=== PATIENT | female | born 1985 | race Caucasian/White ===

== ENCOUNTER 2016-05-06 17:48 | Emergency (ER) | payer MEDICAID ==
[~2016-05-06] VITALS: Wt 110.5 kg
[2016-05-06] MEDS ORDERED: OFLO5DRO7 LEFT EAR (18:29)
[2016-05-06] MEDS ORDERED: IBUP-1542 PO (18:29)
[2016-05-06] MEDS ORDERED: AMOX1TAB10 PO (18:29)
--- NOTE | 2016-05-06 20:57 | ERD ---
ER Documentation Chief Complaint Date/Time DATE: 05/06/16 TIME: 20:55 Chief Complaint LEFT EAR PAIN X3 DAYS, DISCHARGE REPORTED HPI 30-year-old female comes in with left ear pain and drainage as well for the last 2 days. No fevers, chills, chest cough or shortness of breath. Denies trauma. ROS All systems reviewed and are negative except as per history of present illness. Medications Home Meds Active Scripts Ibuprofen* (Motrin*) 600 Mg Tab, 600 MG PO Q6, #30 TAB Prov:MATHEUS YOUNG PA-C 05/06/16 Ofloxacin Otic (Ofloxacin Otic) 5 Ml Drops, 5 DROP LEFT EAR BID for 10 Days, #1 BOTTLE Prov:MATHEUS YOUNG PA-C 05/06/16 Amoxicillin/Potassium Clav (Amox-Clav 875-125 mg Tablet) 875-125 mg Tab, 1 TAB PO BID for 7 Days, #14 TAB Prov:MATHEUS YOUNG PA-C 05/06/16 Physical Exam Vitals Vital Signs Date Time Temp Pulse Resp B/P Pulse Ox O2 Delivery O2 Flow Rate FiO2 05/06/16 18:07 98.6 101 17 151/78 99 Physical Exam General: Well-developed, well-nourished. The patient appears in no acute distress. HEENT: Head is normocephalic, atraumatic. No scleral icterus. Left ear has a ruptured tympanic membrane at the 9 o'clock position, there is mild drainage, no otorrhea, external ear is unremarkable, mastoids are nontender. Right ear is normal. Neck: Supple. Nontender. Lungs: Clear to auscultation. Normal air movement. Heart: Regular rate and rhythm. S1 and S2 are normal. No murmurs, gallops, or rubs. Abdomen: Nondistended. Extremities: No clubbing or cyanosis. Moving extremities x 4. No weakness. Neurologic: Alert and oriented 3. No focal deficits. Normal speech and gait. Skin: Normal turgor. No rash or lesions. Procedures/MDM 30-year-old female comes in with otitis media with tympanic membrane perforation of the left ear. Differentials include deep space infection, abscess, meningitis, mastoiditis and among others. She is not diabetic, this appears to be a localized infection, uncomplicated patient is appropriate for outpatient management. Departure Diagnosis: Primary Impression: Left ear pain Condition: Good Patient Instructions: Eardrum Rupture (Perforation) Additional Instructions: Call your primary care doctor TOMORROW for an appointment during the next 1-2 days.See the doctor sooner or return here if your condition worsens before your appointment time. MATHEUS YOUNG PA-C May 06, 2016 20:56
== END 2016-05-06 18:29 | disposition home or self-care (01) ==
LOC: E/R 17:48
DX: H92.02 Otalgia, left ear (principal)
CPT/HCPCS: 99283

== ENCOUNTER 2018-08-27 16:03 | Emergency (ER) | payer MEDICAID ==
[~2018-08-27] VITALS: Ht 167.6 cm; Wt 111.7 kg
[~2018-08-27 16:03] MED LIST: AMOX1TAB10 PO; IBUP-1542 PO; OFLO5DRO7 LEFT EAR
[2018-08-27 16:18] VITALS: Ht 167.6 cm; Wt 111.7 kg
[2018-08-27] MEDS ORDERED: LIDOCAINE/MYLANTA 40 ML BTL PO STA (17:14)
[2018-08-27] MEDS ORDERED: SOD CHLORIDE 0.9% 1,000 ML IV STA (17:14)
[2018-08-27] MEDS ORDERED: BELLADONNA/PHENOBARBITAL TAB PO STA (17:14)
[2018-08-27] MEDS ORDERED: ONDANSETRON 4 MG INJ IV STA (17:14)
[2018-08-27] MEDS ORDERED: LOPERAMIDE 2 MG CAP PO ONE (17:30)
[2018-08-27] MEDS ORDERED: ONDA8TAB14 PO (18:11)
[2018-08-27] MEDS ORDERED: DICY10CA40 PO (18:11)
[2018-08-27] MEDS ORDERED: LOPE2CAP PO (18:11)
[2018-08-27] MEDS ORDERED: ACET500C5 PO (18:11)
[2018-08-27 18:48] VITALS: BP 142/78; PULSE 73; RESP 17
--- NOTE | 2018-08-29 22:59 | ERD ---
ER Documentation Chief Complaint Chief Complaint Low AP, runny nose, N/V, diarrhea, body aches, fever, CHO X 2 days HPI 32-year-old female presents with complaint of body aches, diarrhea, nausea, vomiting, fever, runny nose, and headache for the past 2 days. States that she has been taking ibuprofen for the fever. Last dose was last night. States she has had 2 episodes of vomiting. Vomitus is described as nonbilious and nonbloody. The diarrhea is also described as nonbloody. Denies any recent travel. Denies any right lower quadrant abdominal pain, anorexia, or migration of pain. She is ambulatory. Denies medical problems. Denies allergies. ROS All systems reviewed and are negative except as per history of present illness. Medications Home Meds Active Scripts Acetaminophen* (Tylophen*) 500 Mg Capsule, 2 CAP PO Q8H PRN for PAIN AND OR ELEVATED TEMP, #30 CAP Prov:GARCÍA MINOR 08/27/18 Dicyclomine HCl (Dicyclomine HCl) 10 Mg Capsule, 10 MG PO TID PRN for ABDOMINAL CRAMPING, #20 CAP Prov:GARCÍA MINOR 08/27/18 Ondansetron (Ondansetron Odt) 8 Mg Tab.rapdis, 8 MG PO Q6H PRN for NAUSEA AND/OR VOMITING, #20 TAB Prov:GARCÍA MINOR 08/27/18 Loperamide Hcl* (Imodium*) 2 Mg Capsule, 2 MG PO .AFTER EA LOOSE BM PRN for DIARRHEA, #15 TAB Prov:GARCÍA MINOR 08/27/18 Ibuprofen* (Motrin*) 600 Mg Tab, 600 MG PO Q6, #30 TAB Prov:MATHEUS YOUNG PA-C 05/06/16 Ofloxacin Otic (Ofloxacin Otic) 5 Ml Drops, 5 DROP LEFT EAR BID for 10 Days, #1 BOTTLE Prov:MATHEUS YOUNG PA-C 05/06/16 Amoxicillin/Potassium Clav (Amox-Clav 875-125 mg Tablet) 875-125 mg Tab, 1 TAB PO BID for 7 Days, #14 TAB Prov:MATHEUS YOUNG PA-C 05/06/16 Allergies Allergies: Coded Allergies: ibuprofen (Verified Allergy, Unknown, 08/27/18) PMhx/Soc Medical and Surgical Hx: pt denies Medical Hx, pt denies Surgical Hx Hx Alcohol Use: No Hx Substance Use: No Hx Tobacco Use: No Smoking Status: Never smoker FmHx Family History: No diabetes, No coronary disease, No other Physical Exam Vitals Vital Signs Date Temp Pulse Resp B/P (MAP) Pulse Ox O2 O2 Flow FiO2 Time Delivery Rate 08/27/18 99.3 73 17 142/78 98 Room Air 18:48 (99) 08/27/18 100.6 105 15 148/86 98 16:18 (106) Physical Exam Const: No acute distress Head: Atraumatic Eyes: Normal Conjunctiva ENT: Normal External Ears, Nose and Mouth. Neck: Full range of motion. No meningismus. Resp: Clear to auscultation bilaterally Cardio: Regular rate and rhythm, no murmurs Abd: Soft, non tender, non distended. Normal bowel sounds. Negative McBurneys. Negative Murpheys. Skin: No petechiae or rashes Back: No midline or flank tenderness Ext: No cyanosis, or edema Neur: Awake and alert Psych: Normal Mood and Affect Results 24 hrs Laboratory Tests Test 08/27/18 17:40 POC Beta HCG, Qualitative NEGATIVE Current Medications Medications Dose Sig/Debo Start Time Status Last (Trade) Ordered Route PRN Stop Time Admin Dose Reason Admin Sodium 1,000 ml @ Q1H STAT 08/27/18 DC 08/27/18 Chloride 1,000 mls/hr IV 17:14 08/27/18 17:47 18:13 Ondansetron 4 mg ONCE STAT 08/27/18 DC 08/27/18 HCl (Zofran IV 17:14 08/27/18 17:47 Inj) 17:18 40 ml ONCE STAT 08/27/18 DC 08/27/18 Miscellaneous PO 17:14 08/27/18 17:46 Medication 17:18 (Gi Cocktail (2)) Belladonna/ 2 tab ONCE STAT 08/27/18 DC 08/27/18 Phenobarbital PO 17:14 08/27/18 17:46 () 17:18 Loperamide 4 mg ONCE ONCE 08/27/18 DC 08/27/18 HCl PO 17:30 08/27/18 18:04 (Imodium Cap) 17:31 Procedures/MDM MDM: Patient given IV fluids in the ER as well as GI cocktail and Zofran. Patient states she felt much better at discharge. Patient given Rx for Imodium for diarrhea as well as Bentyl for abdominal cramping. Patient's presentation is consistent with gastroenteritis. I low suspicion for Joann cystitis, appendicitis, bowel obstruction, intra-abdominal abscess, or any other emergent condition. Patient was advised that if she continues to have abdominal pain and/or vomiting, she needs to return to the ER. Patient discharged with strict ER precautions. Patient advised to follow up with PMD. All questions answered at discharge. Departure Diagnosis: Primary Impression: Gastroenteritis Condition: Stable Patient Instructions: Gastroenteritis, Viral (6Y-Adult) Referrals: [facility] YOU HAVE RECEIVED A MEDICAL SCREENING EXAM AND THE RESULTS INDICATE THAT YOU DO NOT HAVE A CONDITION THAT REQUIRES URGENT TREATMENT IN THE EMERGENCY DEPARTMENT. FURTHER EVALUATION AND TREATMENT OF YOUR CONDITION CAN WAIT UNTIL YOU ARE SEEN IN YOUR DOCTORS OFFICE WITHIN THE NEXT 1-2 DAYS. IT IS YOUR RESPONSIBILITY TO MAKE AN APPOINTMENT FOR FOLOW-UP CARE. IF YOU HAVE A PRIMARY DOCTOR --you should call your primary doctor and schedule an appointment IF YOU DO NOT HAVE A PRIMARY DOCTOR YOU CAN CALL OUR PHYSICIAN REFERRAL HOTLINE AT IF YOU CAN NOT AFFORD TO SEE A PHYSICIAN YOU CAN CHOSE FROM THE FOLLOWING [facility] [address] [facility]. [facility] [address] [facility] [facility] [address] [facility]. [facility] [address] [facility] [address] [facility]. [facility]. [address] Additional Instructions: FOLLOW UP WITH YOUR PRIMARY CARE PHYSICIAN TOMORROW.Return to this facility if you are not improving as expected. GARCÍA MINOR August 29, 2018 22:59
== END 2018-08-27 18:48 | disposition home or self-care (01) ==
LOC: FTE 16:03
DX: K52.9 Noninfective gastroenteritis and colitis, unspecified (principal)
CPT/HCPCS: 81025; 96374; J2405; J7030; Z7502; Z7610